=== PATIENT | male | born 1970 | race Caucasian/White ===

== ENCOUNTER 2019-05-11 10:26 | Emergency (ER) | payer BC, OTHER ==
--- NOTE | 2019-05-11 11:24 | ED ---
Lower Extremity - HPI Summary HPI Summary: This pt is a 48 y/o male presenting to [facility] c/o bilateral ankle swelling. Pt reports 3 days ago he went on a vacation and was on a boat. He notes by the end of the day 3 days ago he noticed his ankles were severely swollen to the point where putting on his shoes were difficult. The next day (2 days ago) a friend nurse checked him out and told him he had 4+ pitting edema and was advised to elevate his legs. Pt slept that night with his legs elevated and the next day ( yesterday) his swelling went down. Pt sent a message to his PCP, Dr. Hutchison, over the weekend and was told to come to the ED today. Pt notes mild SOB but believes it is due to stress. Denies chest pain. Denies calf pain. PMHx: HTN (for which he takes amlodipine) and high cholesterol (for which he takes pravastatin). Pt reports amlodipine dose was changed 6 weeks ago. - History of Current Complaint Chief Complaint: EDExtremityLower Stated Complaint: EDEMA IN BOTH ANKLES PER PT Time Seen by Provider: 05/11/19 11:15 Hx Obtained From: Patient Mechanism Of Injury: Other - No injury Onset/Duration: Days Severity Currently: None Pain Intensity: 0 Pain Scale Used: 0-10 Numeric Timing: Lasting Days Location: Is Discrete @ - bilateral ankles Associated Signs And Symptoms: Positive: Swelling. Negative: Fever, Other - POSITIVE: mild SOB, stress. NEGATIVE: chest pain, calf pain Aggravating Factor(s): Nothing Alleviating Factor(s): Elevation Able to Bear Weight: Yes - Allergies/Home Medications Allergies/Adverse Reactions: Allergies Allergy/AdvReac Type Severity Reaction Status Date / Time No Known Allergies Allergy Verified 05/11/19 10:32 PMH/Surg Hx/FS Hx/Imm Hx Endocrine/Hematology History: Denies: Hx Diabetes Cardiovascular History: Reports: Hx Hypercholesterolemia, Hx Hypertension Sensory History: Reports: Hx Contacts or Glasses Opthamlomology History: Reports: Hx Contacts or Glasses - Surgical History Surgical History: None - Immunization History Date of Tetanus Vaccine: unknown Date of Influenza Vaccine: this year Infectious Disease History: No Infectious Disease History: Denies: Hx Clostridium Difficile, Hx Hepatitis, Hx Human Immunodeficiency Virus (HIV), Hx of Known/Suspected MRSA, Hx Shingles, Hx Tuberculosis, Traveled Outside the [place] in Last 30 Days - Family History Known Family History: Positive: Hypertension - mother's side Negative: Cardiac Disease, Diabetes Family History: Father with prostate cancer. - Social History Alcohol Use: None Alcohol Amount: 2 beers a day but not since he has been sick this week. Substance Use Type: Reports: None Hx Tobacco Use: No Smoking Status (MU): Never Smoked Tobacco Review of Systems Negative: Fever Negative: Chest Pain Positive: Shortness Of Breath - mild Positive: Edema - in bilateral ankles. Negative: Other - calf pain Psychological: Other - POSITIVE: stress All Other Systems Reviewed And Are Negative: Yes Physical Exam - Summary Physical Exam Summary: VITAL SIGNS: Reviewed. GENERAL: Patient is a well-developed and nourished male who is lying comfortable in the stretcher. Patient is not in any acute respiratory distress. HEAD AND FACE: No signs of trauma. No ecchymosis, hematomas or skull depressions. No sinus tenderness. EYES: PERRLA, EOMI x 2, No injected conjunctiva, no nystagmus. EARS: Hearing grossly intact. Ear canals and tympanic membranes are within normal limits. MOUTH: Oropharynx within normal limits. NECK: Supple, trachea is midline, no adenopathy, no JVD, no carotid bruit, no c- spine tenderness, neck with full ROM. CHEST: Symmetric, no tenderness at palpation LUNGS: Clear to auscultation bilaterally. No wheezing or crackles. CVS: Regular rate and rhythm, S1 and S2 present, no murmurs or gallops appreciated. ABDOMEN: Soft, non-tender. No signs of distention. No rebound no guarding, and no masses palpated. Bowel sounds are normal. EXTREMITIES: FROM in all major joints, no edema, no cyanosis or clubbing. NEURO: Alert and oriented x 3. No acute neurological deficits. Speech is normal and follows commands. SKIN: Dry and warm Triage Information Reviewed: Yes Vital Signs On Initial Exam: Initial Vitals Temp Pulse Resp BP Pulse Ox 99.2 F 98 18 158/106 95 05/11/19 10:30 05/11/19 10:30 05/11/19 10:30 05/11/19 10:30 05/11/19 10:30 Vital Signs Reviewed: Yes Diagnostics - Vital Signs Vital Signs Temp Pulse Resp BP Pulse Ox 05/11/19 10:30 99.2 F 98 18 158/106 95 - Laboratory Result Diagrams: 05/11/19 11:44 05/11/19 11:44 Lab Statement: Any lab studies that have been ordered have been reviewed, and results considered in the medical decision making process. - Radiology Chest XR Radiology Interpretation Completed By: Radiologist Summary of Radiographic Findings: IMPRESSION: No evidence for acute intrathoracic disease. Dr. Read has reviewed this report. - EKG 11:32 Cardiac Rate: NL - at 74 bpm EKG Rhythm: Sinus Rhythm EKG Comparison: No Significant Change - Similar to prior on 07/17/16. Summary of EKG Findings: Sinus rhythm at [address] elevation. Lower Extremity Course/Dx - Course Assessment/Plan: Blood work without any significant abnormality except for glucose of 106. Chest x-ray impression: No evidence for acute intrathoracic disease. EKG sinus rhythm unchanged from a previous EKG done in 2016. Patient is asymptomatic. Patient does not have shortness of breath, chest pain or recurrent lower extremity edema. I discussed my physical exam and findings with Dr. Hutchison, the patients primary care physician, and he recommended to DC his amlodipine and he will send a prescription for losartan. He will also recheck the patient tomorrow at 1 PM at his office. I discussed the findings and plan with the patient and he agrees. He was requested to return to the emergency department if he develops any worsening or new symptoms. He understands and agrees. - Diagnoses Provider Diagnoses: Ankle edema, Calcium channel zhou adverse reaction - Physician Notifications Discussed Care Of Patient With: Leonides Hutchison Time Discussed With Above Provider: 12:23 Instructed by Provider To: Other - Discussed case with Dr. Hutchison, pt's PCP, who reports pt can be discharged home. Dr. Hutchison wants patient to discontinue Norvasc and he will send pt a prescription for Losartan 50 mg. Pt is to follow up with Dr. Hutchison tomorrow 05/12 at 1300 in his office. Discharge ED - Sign-Out/Discharge Documenting (check all that apply): Patient Departure - Discharge home Patient Received Moderate/Deep Sedation with Procedure: No - Discharge Plan Condition: Stable Disposition: HOME Patient Education Materials: Leg Edema (ED) Referrals: Leonides Hutchison MD [Primary Care Provider] - (TOMORROW (05/12) at 01:00 PM at [facility]. ) Additional Instructions: DISCONTINUE taking Amlodipine (Norvasc). supervisor coffee prescription at your pharmacy for Losartan [address] mg. Follow up with Dr. Hutchison tomorrow (Saturday, 05/12) at 1:00 PM at the [facility]. RETURN TO THE EMERGENCY DEPARTMENT FOR ANY WORSENING OR NEW SYMPTOMS. - Billing Disposition and Condition Condition: STABLE Disposition: Home - Attestation Statements Document Initiated by Kulwinder: Yes Documenting Scribe: Leighann Sanchez Provider For Whom Kulwinder is Documenting (Include Credential): Teddy Read MD Scribe Attestation: ILeighann, scribed for Teddy Read MD on 05/11/19 at 2139. Scribe Documentation Reviewed: Yes Provider Attestation: The documentation as recorded by the georgianaibLeighann wilhelm accurately reflects the service I personally performed and the decisions made by me, Teddy Read MD Status of Scribe Document: Viewed
[2019-05-11 11:51] LABS: ABS Lymphocytes 0.7 10^3/ul (1.0-4.8); ABS Monocytes 0.4 10^3/ul (0-0.8); ABS Neutrophils 3.4 10^3/ul (1.5-7.7); Eosinophil % 0.7 %; Hematocrit 43 % (42-52); Hemoglobin 14.9 g/dL (14.0-18.0); Lymphocyte % 14.4 %; Mean Corpuscular HGB Conc 35 g/dL (31-36); Mean Corpuscular Hemoglobin 32 pg (27-31); Mean Corpuscular Volume 93 fL (80-94); Platelet Count 159 10^3/uL (150-450); Red Blood Count 4.64 10^6 /uL (4.18-5.48); Red Cell Distribution Width 13 % (10-15); White Blood Count 4.6 10^3/uL (3.5-10.8)
[2019-05-11 12:07] LABS: Albumin 4.5 g/dL (3.2-5.2); Albumin/Globulin Ratio 1.8 (1-3); BUN/Creatinine Ratio 18.3 (8-20); Calcium 9.3 mg/dL (8.6-10.3); EGFR African American 120.8 (>60); EGFR Non-African American 99.9 (>60); Globulin 2.5 g/dL (2-4); Total Bilirubin 0.4 mg/dL (0.2-1.0)
[2019-05-11 12:52] VITALS: BP 122/87
== END 2019-05-11 12:51 | disposition home or self-care (01) ==
LOC: ED 10:26
DX: R60.0 Localized edema (principal); R06.02 Shortness of breath; T46.1X5A Adverse effect of calcium-channel blockers, initial encounter; Y92.9 Unspecified place or not applicable; I10 Essential (primary) hypertension; E78.00 Pure hypercholesterolemia, unspecified; Z79.899 Other long term (current) drug therapy
CPT/HCPCS: 36415; 71046; 80053; 83880; 85025; 93005; 99282